=== PATIENT | female | born 1975 | race Caucasian/White ===

== ENCOUNTER 2020-06-08 14:22 | Outpatient (REF) | payer BC, SELFPAY ==
--- NOTE | 2020-06-08 | MM_ITS ---
EXAMINATION: MM SCREENING DIGITAL BREAST TOMOSYNTHESIS, BILATERAL CLINICAL INFORMATION: Screening. Asymptomatic. The lifetime risk of breast cancer based on the Tyrer-Cuzick Model is 10%. COMPARISON: Mammography: 02/10/2019, 01/30/2018, 01/02/2017 TECHNIQUE: Digital breast tomosynthesis is performed in both the craniocaudal and mediolateral oblique views along with computer-aided detection (CAD). Synthesized 2D images are generated from the tomosynthesis. FINDINGS: There are scattered areas of fibroglandular density (ACR BI-RADS breast composition Category b). Breast tissue composition borders on heterogeneously dense. There are no significant masses, abnormal calcifications, or other abnormalities. Parenchymal pattern is similar to prior studies. There is stable asymmetry posterior upper right breast on MLO view similar to prior studies. No developing density. IMPRESSION: No significant changes from prior studies. ASSESSMENT: BI-RADS 2: Benign RECOMMENDATION: Routine annual mammography screening. This patient's information was entered into a reminder system with a target due date for their next mammogram.
== END 2020-06-08 14:23 | disposition home or self-care (01) ==
LOC: HO.MAMMO 14:22
PROVIDERS: PCP Internal Medicine; Visit Provider Internal Medicine
DX: Z20.828 Contact with and (suspected) exposure to other viral communicable diseases (principal)
CPT/HCPCS: 77063; 77067

== ENCOUNTER 2021-06-29 14:17 | Outpatient (REF) | payer OTHER, SELFPAY ==
--- NOTE | ~2021-06-29 | MM_ITS ---
EXAMINATION: MM SCREENING DIGITAL BREAST TOMOSYNTHESIS, BILATERAL CLINICAL INFORMATION: Screening. Asymptomatic. The lifetime risk of breast cancer based on the Tyrer-Cuzick Model is 10.4%. COMPARISON: Mammography: June 08, 2020 and studies dating back to November 16, 2014 TECHNIQUE: Digital breast tomosynthesis is performed in both the craniocaudal and mediolateral oblique views along with computer-aided detection (CAD). Synthesized 2D images are generated from the tomosynthesis. FINDINGS: The breasts are heterogeneously dense, which may obscure small masses (ACR BI-RADS breast composition Category c). There are no significant masses, abnormal calcifications, or other abnormalities. MM/MM tomosynthesis screening BI IMPRESSION: There are no significant changes from prior study. ASSESSMENT: BI-RADS 1: Negative RECOMMENDATION: Routine annual mammography screening. This patient's information was entered into a reminder system with a target due date for their next mammogram.
== END 2021-06-29 14:18 | disposition home or self-care (01) ==
LOC: HO.MAMMO 14:17
PROVIDERS: PCP Internal Medicine; Visit Provider Internal Medicine
DX: Z12.31 Encounter for screening mammogram for malignant neoplasm of breast (principal)
CPT/HCPCS: 77063; 77067

== ENCOUNTER 2021-09-29 06:29 | Outpatient (REF) | payer OTHER, SELFPAY ==
[2021-09-29 06:44] LABS: MANUAL DIFF FLAG NO
[2021-09-29 07:33] LABS: Basophils Percent Auto 0.6 % (0-2); Eosinophils Absolute Auto 0.3 X10*3/uL (0.0-0.4); Hematocrit 41.5 % (37.0-47.0); Hemoglobin 13.6 g/dl (12.0-16.0); Imm Gran Abs Auto 0.01 X10*3/uL (0.00-0.03); Imm Gran Pct Auto 0.2 % (0.0-0.4); Lymphocytes Absolute Auto 1.3 X10*3/uL (1.2-4.9); Lymphocytes Percent Auto 27.5 % (20-40); Mean Corpuscular HGB Conc 32.8 g/dl (31.0-35.0); Mean Corpuscular Hemoglobin 29.4 pg (27.0-33.0); Mean Corpuscular Volume 89.8 fL (80.0-98.0); Mean Platelet Volume 12.2 fL (9.4-12.3); Monocytes Absolute Auto 0.4 X10*3/uL (0.1-1.2); Monocytes Percent Auto 7.9 % (2-11); Neutrophils Absolute Auto 2.8 x10*3/uL (2.0-8.3); Neutrophils Percent Auto 57.8 % (45-73); Platelet Count 134 X10*3/uL (160-400); Red Blood Count 4.62 X10*6/uL (4.20-5.50); Red Cell Distribution Width 13.6 % (11.0-16.0); White Blood Count 4.8 X10*3/uL (4.8-10.8)
[2021-09-29 08:04] LABS: Alanine Aminotransferase 15 U/L (0-31); Albumin Level 4.3 g/dL (3.5-5.0); Alkaline Phosphatase 37 U/L (39-117); Anion Gap 11 (12-20); Aspartate Amino Transferase 18 U/L (5-31); Bilirubin Total 0.9 mg/dL (0.0-1.0); Blood Urea Nitrogen 17 mg/dL (9-16); Calcium 9.7 mg/dL (8.4-10.2); Carbon Dioxide 26 mmol/L (22-29); Chloride 107 mmol/L (96-108); Cholesterol 183 mg/dL; Estimated Glomerular Filt Rate > 60; Glucose Fasting 103 mg/dL (60-99); HDL Cholesterol 72 mg/dL; LDL Cholesterol Calculated 100 mg/dl; Potassium 4.2 mmol/L (3.3-5.1); Sodium 140 mmol/L (135-145); Total Protein 6.9 g/dL (6.5-8.0); Triglycerides 59 mg/dL
[2021-09-29 08:14] LABS: Thyroid Stimulating Hormone 2.55 uIU/mL (0.32-4.0)
== END 2021-09-29 06:30 | disposition home or self-care (01) ==
LOC: HO.LAB 06:29
PROVIDERS: PCP Internal Medicine; Visit Provider Internal Medicine
DX: E03.9 Hypothyroidism, unspecified (principal); D64.9 Anemia, unspecified; F41.1 Generalized anxiety disorder; E78.5 Hyperlipidemia, unspecified
CPT/HCPCS: 36415; 80053; 80061; 84443; 85025

== ENCOUNTER 2021-12-27 05:58 | Outpatient (REF) | payer OTHER, SELFPAY ==
[2021-12-27 06:09] LABS: MANUAL DIFF FLAG NO
[2021-12-27 07:34] LABS: Basophils Percent Auto 0.5 % (0-2); Eosinophils Absolute Auto 0.3 X10*3/uL (0.0-0.4); Eosinophils Percent Auto 4.7 % (0-4); Hematocrit 43.2 % (37.0-47.0); Hemoglobin 13.7 g/dl (12.0-16.0); Imm Gran Abs Auto 0.01 X10*3/uL (0.00-0.03); Imm Gran Pct Auto 0.2 % (0.0-0.4); Lymphocytes Absolute Auto 1.3 X10*3/uL (1.2-4.9); Lymphocytes Percent Auto 23.3 % (20-40); Mean Corpuscular HGB Conc 31.7 g/dl (31.0-35.0); Mean Corpuscular Hemoglobin 29.1 pg (27.0-33.0); Mean Corpuscular Volume 91.7 fL (80.0-98.0); Monocytes Absolute Auto 0.5 X10*3/uL (0.1-1.2); Monocytes Percent Auto 9.5 % (2-11); Neutrophils Absolute Auto 3.5 x10*3/uL (2.0-8.3); Neutrophils Percent Auto 61.8 % (45-73); Platelet Count 134 X10*3/uL (160-400); Red Blood Count 4.71 X10*6/uL (4.20-5.50); Red Cell Distribution Width 13.3 % (11.0-16.0); White Blood Count 5.7 X10*3/uL (4.8-10.8)
[2021-12-27 08:10] LABS: Thyroid Stimulating Hormone 2.81 uIU/mL (0.32-4.0)
== END 2021-12-27 05:59 | disposition home or self-care (01) ==
LOC: HO.LAB 05:58
PROVIDERS: PCP Internal Medicine; Visit Provider Internal Medicine
DX: E03.9 Hypothyroidism, unspecified (principal); D69.6 Thrombocytopenia, unspecified
CPT/HCPCS: 36415; 84443; 85025

== ENCOUNTER 2022-01-23 15:51 | Outpatient (REF) | payer OTHER, SELFPAY ==
--- NOTE | ~2022-01-23 | XR_ITS ---
EXAMINATION: XR HAND, LEFT CLINICAL INFORMATION: Pain. COMPARISON: None TECHNIQUE: PA, lateral, and oblique views of the left hand. FINDINGS: The bones and soft tissues are normal. No fracture. Alignment is anatomic. Joint spaces are maintained. No erosions or soft tissue calcifications. XR/XR hand LT min 3V IMPRESSION: Normal left hand.
== END 2022-01-23 15:52 | disposition home or self-care (01) ==
LOC: HO.XRAY 15:51
PROVIDERS: PCP Internal Medicine; Visit Provider Internal Medicine
DX: M79.642 Pain in left hand (principal)
CPT/HCPCS: 73130

== ENCOUNTER 2022-07-02 14:58 | Outpatient (REF) | payer OTHER, SELFPAY ==
--- NOTE | ~2022-07-02 | MM_ITS ---
EXAMINATION: MM SCREENING DIGITAL BREAST TOMOSYNTHESIS, BILATERAL CLINICAL INFORMATION: Screening. Asymptomatic. COMPARISON: Mammography: 06/29/2021 and prior exams dating back to 11/16/2014 TECHNIQUE: Digital breast tomosynthesis is performed in both the craniocaudal and mediolateral oblique views along with computer-aided detection (CAD). Synthesized 2D images are generated from the tomosynthesis. FINDINGS: The breasts are heterogeneously dense, which may obscure small masses (ACR BI-RADS breast composition Category c). Parenchymal pattern is similar to prior studies. No developing density or architectural abnormality. Breast tissue composition borders on average fibroglandular. There are no significant masses, abnormal calcifications, or other abnormalities. Skin contours are smooth. No significant changes. MM/MM tomosynthesis screening BI IMPRESSION: No mammographic evidence of malignancy. ASSESSMENT: BI-RADS 1: Negative RECOMMENDATION: Routine annual mammography screening. This patient's information was entered into a reminder system with a target due date for their next mammogram.
== END 2022-07-02 14:59 | disposition home or self-care (01) ==
LOC: HO.MAMMO 14:58
PROVIDERS: PCP Internal Medicine; Visit Provider Internal Medicine
DX: Z12.31 Encounter for screening mammogram for malignant neoplasm of breast (principal)
CPT/HCPCS: 77063; 77067

== ENCOUNTER → 2022-12-12 11:42 | Outpatient (BNVA) | payer OTHER, SELFPAY | PROVIDERS: PCP Internal Medicine; Visit Provider Nurse Practitioner Family | DX: Z13.89 Encounter for screening for other disorder (principal) ==

== ENCOUNTER 2023-01-24 10:54 | Day surgery (SDC) | payer OTHER, SELFPAY ==
[2023-01-18 16:48] VITALS: BMI 23.4
--- NOTE | 2023-01-23 08:55 | HO.ANESPROP2 ---
Documented by User: Cat Wilkes NP 01/23/23 08:57 HPI - Anesthesia Eval Consult details Narrative: 47yo F for Colonoscopy Hx Thrombocytopenia PMFSH Active Problems Active Problems: All Active Problems (Updated 11/19/22 @ 12:30 by Palak Palacios MD) Screen for colon cancer (Acute) Pharyngitis (Acute) Left hand pain (Acute) Physical exam (Acute) Thrombocytopenia (Acute) ROSARIO (generalized anxiety disorder) (Acute) Hypothyroid (Acute) Past Medical History Medical History ROSARIO (generalized anxiety disorder) Hypothyroid Left hand pain Physical exam Thrombocytopenia Family History Family History Mother Hypertension IBS (irritable bowel syndrome) Father Diabetes mellitus CAD (coronary artery disease) Pure hypercholesterolemia Hypertension CHF (congestive heart failure) Hypothyroidism Fred's syndrome Maternal Grandmother Acute leukemia Maternal Grandfather Cancer Paternal Grandmother Hypertension Stroke Heart attack Paternal Grandfather Brain cancer Surgical History Surgical History History of endometrial ablation History of tonsillectomy Previous section Social History Social History Housing: House Alcohol intake: current Alcohol intake frequency: a few times a month Alcohol type: beer and hard liquor Patient Tobacco Use Status: Former Tobacco user Tobacco use type: Cigarette e-Cigarette/Vaping Use: Never Used Second Hand Smoke Exposure: No Use of substances other than those prescribed or required for medical reasons: No Are you DNR?: No Advance Directives: No Advance Directives Information Provided: Yes service: No Current occupational status: employed Current occupational exposures/hazards: No Cognitive needs: No Hearing needs: No Vision needs: No Meds Allergies Allergy/AdvReac Type Severity Reaction Status Date / Time acetaminophen [From Percocet] Allergy Severe Vomiting Verified 01/24/23 11:33 codeine [CODEINE] Allergy Severe Vomiting Verified 01/24/23 11:33 cortisone Allergy Severe Vomiting Verified 01/24/23 11:33 erythromycin base Allergy Severe Vomiting Verified 01/24/23 11:33 [ERYTHROMYCIN BASE] oxycodone [From Percocet] Allergy Severe Vomiting Verified 01/24/23 11:33 Codeine Sulfate Allergy Severe Vomiting Uncoded 01/24/23 11:33 Exam Exam Date and Time: January 23, 2023 0855 Height,Weight and Vital Signs: Height 5 ft 8.5 in Weight 70.987 kg Assessment and Plan Assessment Anesthesia Assessment: Chart Reviewed Documented by User: Nanci Puentes MD 01/24/23 12:36 PMFSH Past Medical History Medical History ROSARIO (generalized anxiety disorder) Hypothyroid Left hand pain Physical exam Thrombocytopenia Family History Family History Mother Hypertension IBS (irritable bowel syndrome) Father Diabetes mellitus CAD (coronary artery disease) Pure hypercholesterolemia Hypertension CHF (congestive heart failure) Hypothyroidism Fred's syndrome Maternal Grandmother Acute leukemia Maternal Grandfather Cancer Paternal Grandmother Hypertension Stroke Heart attack Paternal Grandfather Brain cancer Surgical History Surgical History History of endometrial ablation History of tonsillectomy Previous section History of Problems with Anesthesia: No Social History Social History Housing: House Alcohol intake: current Alcohol intake frequency: a few times a month Alcohol type: beer and hard liquor Patient Tobacco Use Status: Former Tobacco user Tobacco use type: Cigarette e-Cigarette/Vaping Use: Never Used Second Hand Smoke Exposure: No Use of substances other than those prescribed or required for medical reasons: No Are you DNR?: No Advance Directives: No Advance Directives Information Provided: Yes service: No Current occupational status: employed Current occupational exposures/hazards: No Cognitive needs: No Hearing needs: No Vision needs: No Meds Allergies Allergy/AdvReac Type Severity Reaction Status Date / Time acetaminophen [From Percocet] Allergy Severe Vomiting Verified 01/24/23 11:33 codeine [CODEINE] Allergy Severe Vomiting Verified 01/24/23 11:33 cortisone Allergy Severe Vomiting Verified 01/24/23 11:33 erythromycin base Allergy Severe Vomiting Verified 01/24/23 11:33 [ERYTHROMYCIN BASE] oxycodone [From Percocet] Allergy Severe Vomiting Verified 01/24/23 11:33 Codeine Sulfate Allergy Severe Vomiting Uncoded 01/24/23 11:33 Exam Airway Mallampati Class: II TM Dist: >3cm Neck ROM: Full Loose/Missing/Broken Teeth: No Heart: RRR Lungs: CTA Assessment and Plan Assessment Anesthesia Assessment: Anesthesia Plan Discussed Final Anesthetic Review History of Problems with Anesthesia: No NPO: Yes ASA Class: II Final Preanesthetic Review: Meds/Allgs Chart Reviewed, Consent Obtained/Reviewed and Anes Risks/Benef Reviewed Patient Risk: Low Procedure Risk: Low Anesthetic Plan Anesthetic Plan: MAC: Disposition: Standard PACU
[2023-01-24 11:21] VITALS: BMI 23.2
[2023-01-24 11:25] LABS: Hematocrit 43.1 % (37.0-47.0); Mean Corpuscular HGB Conc 32.5 g/dl (31.0-35.0); Mean Corpuscular Hemoglobin 29.6 pg (27.0-33.0); Mean Corpuscular Volume 91.1 fL (80.0-98.0); Mean Platelet Volume 11.7 fL (9.4-12.3); Platelet Count 115 X10*3/uL (160-400); Red Blood Count 4.73 X10*6/uL (4.20-5.50); Red Cell Distribution Width 13.4 % (11.0-16.0); White Blood Count 6.7 X10*3/uL (4.8-10.8)
[2023-01-24 11:26] VITALS: BP 125/64; PULSE 69; RESP 16; TEMP 37.6; O2SAT 98
[2023-01-24] MEDS: Lactated Ringers 1,000 ML 100 ML IVCONT (11:32)
--- NOTE | 2023-01-24 12:00 | PC.NURSE ---
PREOP PLATELET RESULT 115. DR. MOON AND DR. GONZALEZ MADE AWARE. OKAY TO PROCEED PER DR. GONZALEZ.
--- NOTE | 2023-01-24 12:06 | MHC.SHP ---
Pre-Procedural Eval Section A Date of Service: 01/24/23 Section B Chief Complaint: screening Relevant Family History (Specify if Yes): No Relevant Social History: Alcohol Use (occasional) Present Medications: see Short Stay Collaborative assessment Medical History: Significant History (ROSARIO (generalized anxiety disorder) Hypothyroid Left hand pain Physical exam Thrombocytopenia) History of Previous Operations: Relevant previous surgery/procedure and date(s) (History of endometrial ablation History of tonsillectomy Previous section) Allergies: Allergies Allergy/AdvReac Type Severity Reaction Status Date / Time acetaminophen [From Percocet] Allergy Severe Vomiting Verified 01/24/23 11:33 codeine [CODEINE] Allergy Severe Vomiting Verified 01/24/23 11:33 cortisone Allergy Severe Vomiting Verified 01/24/23 11:33 erythromycin base Allergy Severe Vomiting Verified 01/24/23 11:33 [ERYTHROMYCIN BASE] oxycodone [From Percocet] Allergy Severe Vomiting Verified 01/24/23 11:33 Codeine Sulfate Allergy Severe Vomiting Uncoded 01/24/23 11:33 Review of Systems Sugical H&P ROS: Negative: Constitution, Cardiovascular, Respiratory, Neurological, Psychiatric, Hem-Onc, Allergic/Immunologic, Gastrointestinal, Genitourinary, Musculoskeletal, Integumentary, Endocrine and Eyes/Ears/Nose/Throat Exam Surgical H&P Exam: Normal: HEENT, Normal: Heart, Normal: Lungs, Normal: Extremities, Normal: Abdomen, Normal: Skin and Normal: Neurological Plan Diagnosis/Plan: Unchanged I have reviewed the history and physical and performed a pertinent physical examination on my patient. No changes have occurred unless specified. Time Spent With Patient Time: Total time managing care of this patient today ____ minutes.
[2023-01-24 13:00] LABS: HCG Quantitative < 2 mIU/mL
--- NOTE | 2023-01-24 13:43 | W.PM.OPN ---
Operative Note Operative Note Date of Service: 01/24/23 Narrative: Operative Information Procedure Description: Colonoscopy Indication: colon screening Anesthesia: MAC COLONOSCOPY Instrument: Olympus variable stiffness pediatric scope 190L Colonoscopy Monitoring: Vital signs and clinical assessment, continuous EKG monitoring, Pulse oximetry, Carbon Dioxide monitoring and blood pressure monitoring were done throughout the procedure. Colon withdrawal time was 17 minutes. Procedure: The patient was placed in the left lateral decubitis position and pre-procedure medications were administered. After a digital rectal examination of the ano-rectum, the video colonoscope was inserted into the rectum and advanced through the colon to the cecum/TI. The colonoscope was slowly withdrawn in a retrograde panoramic fashion and the colon mucosa was carefully examined including a retroflexed view of the rectum. Findings and interventions are described below. Procedure Difficulty: moderate due to redundant colon and looping Findings: Terminal Ileum-normal Cecum: flat polyp noted with mucosal cap, lifted with eleview and then removed with hot snare, with edges ablated with tip of snare. The polyp measured about 10-12 mm. The defect was partially closed with a clip. Ascending Colon: normal Transverse Colon -normal Descending Colon:normal Sigmoid Colon: few diverticula noted Rectum: Retroflexion with small internal hemorrhoids, grade I Anorectum - normal Colon preparation: [place] Bowel Preparation Scale Right colon; 3 Transverse colon: 3 Left colon; 3 (0 = Unprepared colon segment with mucosa not seen due to solid stool that cannot be cleared. 1 = Portion of mucosa of the colon segment seen, but other areas of the colon segment not well seen due to staining, residual stool and/or opaque liquid. 2 = Minor amount of residual staining, small fragments of stool and/or opaque liquid, but mucosa of colon segment seen well. 3 = Entire mucosa of colon segment seen well with no residual staining, small fragments of stool or opaque liquid) Impression and Post Procedure Diagnosis: polyp internal hemorrhoids diverticular disease redundant colon Plan: High fiber diet leaflet Avoid straining at stool, epsom salts and sitz bath, anusol supps or cream Repeat Colonoscopy in 3-5 years or earlier if clinically indicated next time can consider using an adult scope Above findings were reviewed with the patient and relevant handouts were provided if indicated.
[2023-01-24 13:45] VITALS: BP 110/60; PULSE 74; RESP 16; TEMP 36.6; O2SAT 100
[2023-01-24 14:00] VITALS: BP 110/50; PULSE 82; RESP 16; O2SAT 100
[2023-01-24 14:15] VITALS: BP 121/63; PULSE 72; RESP 18; TEMP 37.1; O2SAT 100
== END 2023-01-24 14:20 | disposition home or self-care (01) ==
PROVIDERS: Anesthesiology; Nurse Practitioner; PCP Internal Medicine; Visit Provider Internal Medicine Gastroenterology
PROC: 0DJD8ZZ Inspection of Lower Intestinal Tract, Via Natural or Artificial Opening Endoscopic (ICD-10-PCS; CPT 45378; principal; 2023-01-24 12:30)
DX: Z12.11 Encounter for screening for malignant neoplasm of colon (principal); D12.0 Benign neoplasm of cecum; K57.30 Diverticulosis of large intestine without perforation or abscess without bleeding; K64.0 First degree hemorrhoids; Q43.8 Other specified congenital malformations of intestine; E03.9 Hypothyroidism, unspecified; D69.6 Thrombocytopenia, unspecified; F41.1 Generalized anxiety disorder; Z88.0 Allergy status to penicillin; Z88.1 Allergy status to other antibiotic agents; Z88.8 Allergy status to other drugs, medicaments and biological substances; Z87.891 Personal history of nicotine dependence
CPT/HCPCS: 45385; 45381; 36415; 84702; 85027; 88305

== ENCOUNTER 2023-02-22 10:28 | Outpatient (AMB) | payer OTHER, SELFPAY ==
--- NOTE | 2023-02-22 10:45 | A.OFFVIS_ITS ---
Intake Vital Signs 02/22/23 10:46 Height 5 ft 8 in Weight 156 lb 1.396 oz BMI 23.7 BP 154/71 H Blood Pressure Location Lt brachial Position Sitting Pulse 63 Intake Visit Reasons: s/P Dr. Díaz Intake Note: Amy presents in office as a est.patient for a post-op for colo pt got it done 01.24.23 PT CC: pt reports having no concerns pt denies any other GI Issues Chairman Ceo Required: No Accompanied by: Self / Same As Patient Allergies acetaminophen [From Percocet] Allergy (Severe, Verified 02/22/23 10:45) Vomiting codeine [CODEINE] Allergy (Severe, Verified 02/22/23 10:45) Vomiting cortisone Allergy (Severe, Verified 02/22/23 10:45) Vomiting erythromycin base [ERYTHROMYCIN BASE] Allergy (Severe, Verified 02/22/23 10:45) Vomiting oxycodone [From Percocet] Allergy (Severe, Verified 02/22/23 10:45) Vomiting Codeine Sulfate Allergy (Severe, Uncoded 02/22/23 10:45) Vomiting HPI s/P Dr. Díaz HPI Details LAST VISIT: Patient denies any GI, cardiac or respiratory symptoms.? Denies any issues with anesthesia in the past.? Denies any history of sleep apnea.? No history infectious diseases in the past or present.? Not on any anticoagulation therapy.? No family or personal history of colon cancer or polyps.? Patient's brother was diagnosed with Crohn's disease.? Patient denies melena, hematochezia, unintentional weight loss or ribbon like stools.? Discussed at length the pre-procedure,? prep, diet & medications as well as what to expect prior, during and after the procedure.?? Stressed the importance of good bowel prep. ?Recommended the use of Vaseline or Calmoseptine OTC & baby wipes with bowel movements to promote comfort.? ?Patient verbalizes understanding and agrees to plan of care.? She was given the opportunity to ask questions and all questions answered.? We will see her after the procedure.? COLONOSCOPY: Findings: Terminal Ileum-normal Cecum: flat polyp noted with mucosal cap, lifted with eleview and then removed with hot snare, with edges ablated with tip of snare. The polyp measured about 10-12 mm. The defect was partially closed with a clip. Ascending Colon: normal Transverse Colon -normal Descending Colon:normal Sigmoid Colon: few diverticula noted Rectum: Retroflexion with small internal hemorrhoids, grade I Anorectum - normal Colon preparation: [place] Bowel Preparation Scale Right colon; 3 Transverse colon: 3 Left colon; 3 (0 = Unprepared colon segment with mucosa not seen due to solid stool that cannot be cleared. 1 = Portion of mucosa of the colon segment seen, but other areas of the colon segment not well seen due to staining, residual stool and/or opaque liquid. 2 = Minor amount of residual staining, small fragments of stool and/or opaque liquid, but mucosa of colon segment seen well. 3 = Entire mucosa of colon segment seen well with no residual staining, small fragments of stool or opaque liquid) Impression and Post Procedure Diagnosis: polyp internal hemorrhoids diverticular disease redundant colon Plan: High fiber diet leaflet Avoid straining at stool, epsom salts and sitz bath, anusol supps or cream Repeat Colonoscopy in 3-5 years or earlier if clinically indicated next time can consider using an adult scope PATHOLOGY RESULTS Diagnosis Cecum, polypectomy:? Fragments of sessile serrated lesion/polyp; negative for cytologic dysplasia. TODAY'S VISIT Patient is here today for follow-up and to discuss colonoscopy results. Patient denies any ill effects from the prep, anesthesia or procedure itself. One sessile serrated polyp found without dysplasia or carcinoma. Colonoscopy was recommended in 3 years. Patient had good prep. Redundant colon seen and we will need to use adult scope next colonoscopy. Diverticular disease of sigmoid colon found as well. Patient denies any melena, hematochezia, unintentional weight loss or ribbon like stools. Patient denies any dyspepsia, dysphagia or odynophagia. Patient states that she has been feeling well and denies any GI concerning symptoms. [facility] Medical History (Updated 03/13/23 @ 20:25 by Erika Veliz, LOT TECHNICIAN-) Diverticulosis ROSARIO (generalized anxiety disorder) Hypothyroid Left hand pain Physical exam Sessile serrated polyp of colon Thrombocytopenia Surgical History History of endometrial ablation History of tonsillectomy Hx of colonoscopy Previous section Family History Mother Hypertension IBS (irritable bowel syndrome) Father Diabetes mellitus CAD (coronary artery disease) Pure hypercholesterolemia Hypertension CHF (congestive heart failure) Hypothyroidism Fred's syndrome Maternal Grandmother Acute leukemia Maternal Grandfather Cancer Paternal Grandmother Hypertension Stroke Heart attack Paternal Grandfather Brain cancer Social History Housing: House Alcohol intake: current Alcohol intake frequency: a few times a month Alcohol type: beer and hard liquor Patient Tobacco Use Status: Former Tobacco user Tobacco use type: Cigarette e-Cigarette/Vaping Use: Never Used Second Hand Smoke Exposure: No service: No Current occupational status: employed Current occupational exposures/hazards: No Cognitive needs: No Hearing needs: No Vision needs: No Review of Systems Const Denies weight gain and Denies weight loss ENT Reports no additional complaints, Denies dysphagia and Denies odynophagia Card Reports no additional complaints Resp Reports no additional complaints GI Denies abdominal pain, Denies belching, Denies melena, Denies bloating, Denies change in bowel habits, Denies dysphagia, Denies excessive flatus, Denies dyspepsia, Denies heartburn, Denies diarrhea, Denies loose stools, Denies nausea, Denies odynophagia and Denies vomiting Musc Reports no additional complaints Neuro Reports no additional complaints Psych Reports no additional complaints Endo Reports no additional complaints Physical Exam Vital Signs: Last Vital Signs Pulse 63 02/22/23 10:46 BP 154/71 H 02/22/23 10:46 BMI result Body Mass Index 23.7 Const General: healthy appearing, no acute distress and well developed Nutritional Appearance: well nourished Orientation/consciousness: patient oriented x3 HEENT Head: Yes normal to inspection, Yes normocephalic and Yes atraumatic Face and sinus: Yes normal facial exam Mouth: Normal oral and palatal mucosa present Throat: Yes posterior oropharynx normal, Yes tonsils normal and Yes uvula midline Eyes General: appearance normal, both eyes and all related structures Neck Neck: Yes normal visual inspection, Yes full ROM and Yes trachea midline Thyroid: Thyroid normal Resp Effort & Inspection: normal respiratory effort, able to speak in complete sentences, no tracheal deviation and symmetric chest movement Auscultation: clear to auscultation bilaterally Cardio Rate: regular rate Heart sounds: S1 normal heart sound present and S2 normal heart sound present GI Inspection: Yes normal to inspection and No distended Palpation (GI): Soft to palpation, not firm, nontender and No hepatosplenomegaly present Auscultation: normal bowel sounds General: Yes no CVA tenderness Back/Spine/Pelvis Back: no CVA tenderness Skin General skin exam: elasticity normal, turgor normal and dry skin Neuro General: patient oriented x3 Psych Appearance: grossly normal Mental Status: mental status grossly normal Speech and movement: Normal speech and movement present Affect: normal affect Assessment & Plan Assessment & Plan (1) Diverticulosis: Code(s): K57.90 - Diverticulosis of intestine, part unspecified, without perforation or abscess without bleeding Plan: Scattered diverticulosis of sigmoid colon found. Patient will need to increase fiber in her diet. Patient was also encouraged to increase fluid intake and activity. List of food high in fiber given to patient. (2) Sessile serrated polyp of colon: Code(s): D12.6 - Benign neoplasm of colon, unspecified Plan: Sessile serrated follow up found patient will return for colorectal screening in 3 years, sooner if clinically necessary. Patient is agreeable to this plan and verbalizes understanding of instructions. She was given the opportunity to ask questions and all questions answered. Patient will follow-up with our office on as needed basis. Thank you for allowing me to participate in her care Coding Level of Care Code Est Pt Level 3 (88154) Diagnoses Diverticulosis K57.90 Sessile serrated polyp of colon D12.6 Time Spent (min) 30 Comment 20 minutes spent with patient and additional 10 minutes spent reviewing her records
[2023-02-22 10:46] VITALS: BP 154/71; PULSE 63; BMI 23.7
== END 2023-02-22 12:05 | disposition home or self-care (01) ==
PROVIDERS: PCP Internal Medicine; Visit Provider Nurse Practitioner Family
DX: K57.90 Diverticulosis of intestine, part unspecified, without perforation or abscess without bleeding (principal); D12.6 Benign neoplasm of colon, unspecified
CPT/HCPCS: 99213

== ENCOUNTER → 2023-02-22 10:28 | Outpatient (BNVA) | payer OTHER, SELFPAY | PROVIDERS: PCP Internal Medicine; Visit Provider Nurse Practitioner Family ==

== ENCOUNTER 2023-04-23 14:44 | Outpatient (AMB) | payer OTHER, SELFPAY ==
[2023-04-23 14:45] VITALS: BP 152/80; BMI 23.9
--- NOTE | 2023-04-23 14:45 | MHC.PC.OV ---
Vital Signs 04/23/23 14:45 04/23/23 15:20 Height 5 ft 8 in Weight 157 lb BMI 23.9 BP 152/80 H 150/80 H Blood Pressure Location Lt brachial Lt brachial Position Sitting Sitting Intake Visit Reasons: Discuss bp Intake Note: Patient here for a follow up BP Core Paster Required: No Accompanied by: Self / Same As Patient Allergies acetaminophen [From Percocet] Allergy (Severe, Verified 04/23/23 15:05) Vomiting codeine [CODEINE] Allergy (Severe, Verified 04/23/23 15:05) Vomiting erythromycin base [ERYTHROMYCIN BASE] Allergy (Severe, Verified 04/23/23 15:05) Vomiting oxycodone [From Percocet] Allergy (Severe, Verified 04/23/23 15:05) Vomiting Codeine Sulfate Allergy (Severe, Uncoded 04/23/23 15:05) Vomiting Medication List - Last Reconciled 04/23/23 by Palak Palacios MD clobetasol 0.05% 1 appl topical BID PRN 2 weeks clonazepam 0.5 mg PO BID 90 days levothyroxine (Synthroid) 50 mcg PO DAILY 90 days Tobacco use date assessed: 10/09/22 Dental Screening Dental Screen Date: 04/23/23 Did you have a dental visit in the last 12 months?: Yes Did you have a dental problem in the last 6 months where you did not have access to dental care?: No Was dental information given to patient?: Patient has dentist HPI HPI Comments History of Present Illness Details This is a 47-year-old female with hypothyroidism and anxiety that comes today complaining of elevated blood pressure associated with some palpitations. No sweating or any other symptom. Last TSH was normal. Anxiety stable with benzodiazepines as needed. I will start her on losartan. Order ultrasound of kidneys to rule out renal artery stenosis. Also rule out secondary causes of hypertension such as aldosteronism or pheochromocytoma. [facility] Medical History (Updated 04/23/23 @ 15:12 by Palak Palacios MD) Diverticulosis ROSARIO (generalized anxiety disorder) Hypothyroid Left hand pain Physical exam Sessile serrated polyp of colon Thrombocytopenia Surgical History History of endometrial ablation History of tonsillectomy Hx of colonoscopy Previous section Family History Mother Hypertension IBS (irritable bowel syndrome) Father Diabetes mellitus CAD (coronary artery disease) Pure hypercholesterolemia Hypertension CHF (congestive heart failure) Hypothyroidism Fred's syndrome Maternal Grandmother Acute leukemia Maternal Grandfather Cancer Paternal Grandmother Hypertension Stroke Heart attack Paternal Grandfather Brain cancer Social History Housing: House Alcohol intake: current Alcohol intake frequency: a few times a month Alcohol type: beer and hard liquor Patient Tobacco Use Status: Former Tobacco user Tobacco use type: Cigarette e-Cigarette/Vaping Use: Never Used Second Hand Smoke Exposure: No service: No Current occupational status: employed Current occupational exposures/hazards: No Cognitive needs: No Hearing needs: No Vision needs: No Questionnaire Thrive Questionnaire Date Thrive assessed: 10/09/22 ROSARIO-7 AMB Questionnaire ROSARIO-7 Date ROSARIO - 7 assessed: 10/09/22 Source: Developed by Drs. Norm Rivas, Lynne Frey, Terrance Mason and colleagues, with an educational raleigh from [employer]. Review of Systems Const All systems reviewed & are unremarkable except as noted in HPI and below Eyes Reports no additional complaints, Denies change in vision and Denies other visual disturbances Card Denies chest pain at rest, Denies chest pain with activity, Denies edema, Denies irregular heart rhythm, Denies claudication, Denies dyspnea, Denies dyspnea on exertion, Denies orthopnea, Denies paroxysmal nocturnal dyspnea and Denies slow heart rate Resp Denies cough, Denies dyspnea and Denies dyspnea on exertion GI Denies abdominal pain, Denies change in bowel habits, Denies excessive flatus, Denies nausea and Denies vomiting Denies urinary incontinence, Denies urinary hesitancy and Denies urinary urgency Musc Denies abnormal gait, Denies atrophy, Denies deformity and Denies limited range of motion Skin/Breast Denies bleeding lesions, Denies changing lesions and Denies rash Neuro Denies abnormal gait and Denies lack of coordination Physical exam (Primary Care) Vital Signs: Last Vital Signs BP 152/80 H 04/23/23 14:45 BMI result Body Mass Index 23.9 Tobacco/Smoking Status: Tobacco use Status Tobacco use date assessed 10/09/22 04/23/23 14:51 Patient Tobacco Use Status Former Tobacco user 04/23/23 14:51 Tobacco use type Cigarette 04/23/23 14:51 e-Cigarette/Vaping Use Never Used 04/23/23 14:51 Thrive Assessment: Date of Thrive Assessment Date Thrive assessed 10/09/22 04/23/23 14:51 Eyes General: appearance normal, both eyes and all related structures Eyelids: Yes eyelids normal Conjunctivae: conjunctivae normal Neck Neck: Yes normal visual inspection and Yes supple Resp Effort & Inspection: normal respiratory effort Auscultation: clear to auscultation bilaterally Cardio Jugular venous distension: no JVD Rate: regular rate Rhythm: regular rhythm Heart sounds: S1 normal heart sound present and S2 normal heart sound present Extrem General: Yes full ROM Assessment and Plan Assessment & Plan (1) Hypothyroid: Code(s): E03.9 - Hypothyroidism, unspecified Plan: Continue levothyroxine. (2) ROSARIO (generalized anxiety disorder): Code(s): F41.1 - Generalized anxiety disorder Plan: Continue benzodiazepines as needed. (3) Uncontrolled hypertension: Code(s): I10 - Essential (primary) hypertension Plan: Start losartan. Blood pressure goal is equal or less than 130/80. Advised to measure blood pressure at home 3 times a week. Orders: Orders US renal BI Today I10 - Essential (primary) hypertension Aldosterone Today I10 - Essential (primary) hypertension Aldost/Renin Today I10 - Essential (primary) hypertension Catecholamines, Frac., Plasma Today I10 - Essential (primary) hypertension Metanephrines, Plasma Today I10 - Essential (primary) hypertension Renin Today I10 - Essential (primary) hypertension Metanephrines, Random Urine Today I10 - Essential (primary) hypertension US renal doppler Today I10 - Essential (primary) hypertension Medications: New losartan 25 mg PO DAILY 90 tabs 1RF 90 days I10 - Essential (primary) hypertension Coding Level of Care Code Est Pt Level 3 (42868) Diagnoses Hypothyroid E03.9 ROSARIO (generalized anxiety disorder) F41.1 Uncontrolled hypertension I10 Time Spent (min) 19
[2023-04-23 15:20] VITALS: BP 150/80
== END 2023-04-23 15:15 | disposition home or self-care (01) ==
PROVIDERS: PCP Internal Medicine; Visit Provider Internal Medicine
DX: E03.9 Hypothyroidism, unspecified (principal); F41.1 Generalized anxiety disorder; I10 Essential (primary) hypertension
CPT/HCPCS: 99213

== ENCOUNTER 2023-04-23 15:24 | Outpatient (REF) | payer OTHER, SELFPAY ==
[2023-04-27 16:09] LABS: Metanephrine, Free 31 pg/mL (<=57); Normetanephrines, Free 81 pg/mL (<=148); Total Metanephrine, Free 112 pg/mL (<=205)
[2023-04-30 14:47] LABS: Renin 1.47 ng/mL/h (0.25-5.82)
[2023-05-01 14:03] LABS: Creatinine Random Urine 27 mg/dL (20-275); Metanephrine, Free Rand Ur 80 mcg/g cr (33-192); Normetanephrine, Free Rand Ur 194 mcg/g cr (85-514); Total Metanephrine, Free RU 274 mcg/g cr (155-608)
[2023-05-06 08:20] LABS: Plasma Renin Activity 1.54
[2023-05-06 08:22] LABS: Aldosterone/Renin Ratio 1.9
[2023-05-08 17:39] LABS: Catecholamine Frac, Total 364 pg/mL
== END 2023-04-23 15:25 | disposition home or self-care (01) ==
LOC: HO.LAB 15:24
PROVIDERS: PCP Internal Medicine; Visit Provider Internal Medicine
DX: I10 Essential (primary) hypertension (principal)
CPT/HCPCS: 36415; 82088; 82384; 83835; 84244

== ENCOUNTER 2023-05-22 09:19 | Outpatient (REF) | payer OTHER, SELFPAY ==
--- NOTE | ~2023-05-22 | US_ITS ---
EXAMINATION: ULTRASOUND RENAL WITH DOPPLER CLINICAL INFORMATION: Hypertension. Rule out renal artery stenosis. COMPARISON: None. TECHNIQUE: Real-time grayscale, color Doppler, and duplex Doppler evaluation of the kidneys and renal vasculature was performed. FINDINGS: RENAL MEASUREMENTS: Right: 11.4 x 3.4 x 5.4 cm (Sag x AP x TV) Left: 11.5 x 4.4 x 5.7 cm (Sag x AP x TV) Parenchymal thickness and echogenicity are normal. There is a 1.1 cm simple cyst in the lower pole of the left kidney. No follow-up imaging is recommended. There are nonobstructing stones in the lower pole of the left kidney measuring 4 mm and 2 mm in size. No hydronephrosis. DOPPLER INTERROGATION: AORTA: Mid aorta: 96 cm/sec RIGHT MAIN RENAL ARTERY: Proximal: 151 cm/sec Mid: 191 cm/sec Distal: 95 cm/sec LEFT MAIN RENAL ARTERY: Proximal: 96 cm/sec Mid: 144 cm/sec Distal: 103 cm/sec RENAL-AORTIC RATIO (RAR): Right: 2.0 Left: 1.5 SEGMENTAL RESISTIVE INDICES: Right: 0.65-0.69 Left: 0.62-0.65 RENAL VEINS: Right: Patent with normal waveform. Left: Patent with normal waveform. US/US renal doppler IMPRESSION: Elevated velocity in the mid right renal artery raises the possibility of hemodynamically significant stenosis. This location would favor fibromuscular dysplasia over atherosclerotic disease. Recommend further evaluation with CTA abdomen and pelvis without and with contrast. Nonobstructing renal calculi in the lower pole of the left kidney.
--- NOTE | ~2023-05-22 | US_ITS ---
EXAMINATION: ULTRASOUND RENAL WITH DOPPLER CLINICAL INFORMATION: Hypertension. Rule out renal artery stenosis. COMPARISON: None. TECHNIQUE: Real-time grayscale, color Doppler, and duplex Doppler evaluation of the kidneys and renal vasculature was performed. FINDINGS: RENAL MEASUREMENTS: Right: 11.4 x 3.4 x 5.4 cm (Sag x AP x TV) Left: 11.5 x 4.4 x 5.7 cm (Sag x AP x TV) Parenchymal thickness and echogenicity are normal. There is a 1.1 cm simple cyst in the lower pole of the left kidney. No follow-up imaging is recommended. There are nonobstructing stones in the lower pole of the left kidney measuring 4 mm and 2 mm in size. No hydronephrosis. DOPPLER INTERROGATION: AORTA: Mid aorta: 96 cm/sec RIGHT MAIN RENAL ARTERY: Proximal: 151 cm/sec Mid: 191 cm/sec Distal: 95 cm/sec LEFT MAIN RENAL ARTERY: Proximal: 96 cm/sec Mid: 144 cm/sec Distal: 103 cm/sec RENAL-AORTIC RATIO (RAR): Right: 2.0 Left: 1.5 SEGMENTAL RESISTIVE INDICES: Right: 0.65-0.69 Left: 0.62-0.65 RENAL VEINS: Right: Patent with normal waveform. Left: Patent with normal waveform. US/US renal BI IMPRESSION: Elevated velocity in the mid right renal artery raises the possibility of hemodynamically significant stenosis. This location would favor fibromuscular dysplasia over atherosclerotic disease. Recommend further evaluation with CTA abdomen and pelvis without and with contrast. Nonobstructing renal calculi in the lower pole of the left kidney.
== END 2023-05-22 09:20 | disposition home or self-care (01) ==
LOC: HO.US 09:19
PROVIDERS: PCP Internal Medicine; Visit Provider Internal Medicine
DX: I10 Essential (primary) hypertension (principal)
CPT/HCPCS: 76775; 93975

== ENCOUNTER 2023-06-26 08:15 | Outpatient (REF) | payer OTHER, SELFPAY ==
--- NOTE | ~2023-06-26 | CT_ITS ---
EXAMINATION: CT ANGIOGRAM ABDOMEN AND PELVIS CLINICAL INFORMATION: Renal atherosclerotic disease. COMPARISON: Renal ultrasound doppler 05/22/2023: Elevated velocity in the mid right renal artery raises the possibility of hemodynamically significant stenosis. This location would favor fibromuscular dysplasia over atherosclerotic disease. Recommend further evaluation with CTA abdomen and pelvis without and with contrast. TECHNIQUE: Multiple axial images were obtained through the abdomen and pelvis following the administration of 85 mL of Omnipaque 350 intravenous contrast. Images were reviewed on a dedicated 3-D workstation. This CT examination was performed using dose optimization techniques as appropriate, variously including the following: *Automated exposure control *Adjustment of mA and/or kV according to patient size (this includes techniques or standardized protocols for targeted exams where dose is matched to indication/reason for exam; i.e. extremities or head) *Use of iterative reconstruction technique DLP: 266 mGy-cm. VASCULAR FINDINGS: The abdominal aorta appears unremarkable as do the iliofemoral vessels. No aneurysms, dissections or stenoses are seen. The celiac SMA and JOSE MANUEL are all widely patent. There are single renal arteries present bilaterally which are widely patent without evidence of stenosis. NONVASCULAR FINDINGS: LUNG BASES: The visualized lung bases are unremarkable. LIVER, GALLBLADDER, AND BILIARY TREE: The liver measures 17.6 cm in cephalocaudad dimension and is normal in shape and attenuation. No focal hepatic lesion or biliary ductal dilatation is present. The gallbladder is unremarkable with no evidence of radiopaque gallstones, gallbladder wall thickening, or obvious pericholecystic inflammatory changes. PANCREAS: Unremarkable. SPLEEN: Unremarkable. ADRENAL GLANDS: Unremarkable. KIDNEYS AND URETERS: The kidneys are normal in size, shape, and attenuation. No hydronephrosis, hydroureter, or calculi seen. No perinephric stranding. BLADDER: Unremarkable. GASTROINTESTINAL TRACT: The small and large bowel are unremarkable. No evidence of appendicitis. ABDOMINAL WALL: No significant hernia is appreciated. LYMPH NODES: No retroperitoneal lymphadenopathy. PELVIC VISCERA: An anteverted uterus is present with some lobularity indicative of probable uterine fibroids. OSSEOUS STRUCTURES: Unremarkable. CT/CT angio abdomen pelvis IMPRESSION: 1. No evidence of renal artery stenosis. 2. Incidental note made of probable uterine fibroids. Fleischner guidelines were followed.
[2023-06-26] MEDS: iohexoL 350 MG/ML 100 ML INFUS..BTL IV (08:41)
== END 2023-06-26 08:16 | disposition home or self-care (01) ==
LOC: HO.CT 08:15
PROVIDERS: PCP Internal Medicine; Visit Provider Internal Medicine
DX: I70.1 Atherosclerosis of renal artery (principal); I77.3 Arterial fibromuscular dysplasia
CPT/HCPCS: 74174; Q9967

== ENCOUNTER → 2023-07-08 14:00 | Outpatient (BNV) | payer OTHER, SELFPAY | PROVIDERS: PCP Internal Medicine; Visit Provider Radiology Diagnostic Radiology | DX: Z12.31 Encounter for screening mammogram for malignant neoplasm of breast (principal) | CPT/HCPCS: 77063; 77067 ==

== ENCOUNTER 2023-07-08 14:01 | Outpatient (REF) | payer OTHER, SELFPAY | END 2023-07-08 14:02 | disposition home or self-care (01) | LOC: HO.MAMMO 14:01 | PROVIDERS: PCP Internal Medicine; Visit Provider Internal Medicine | DX: Z12.31 Encounter for screening mammogram for malignant neoplasm of breast (principal) | CPT/HCPCS: 77063; 77067 ==

== ENCOUNTER 2023-10-03 06:14 | Outpatient (REF) | payer OTHER, SELFPAY ==
[2023-10-03 07:45] LABS: Basophils Percent Auto 0.6 % (0-2); Eosinophils Absolute Auto 0.2 X10*3/uL (0.0-0.4); Eosinophils Percent Auto 3.7 % (0-4); Hematocrit 42.7 % (37.0-47.0); Imm Gran Abs Auto 0.01 X10*3/uL (0.00-0.03); Imm Gran Pct Auto 0.2 % (0.0-0.4); Lymphocytes Absolute Auto 1.1 X10*3/uL (1.2-4.9); Lymphocytes Percent Auto 21.5 % (20-40); MANUAL DIFF FLAG SCAN; Mean Corpuscular HGB Conc 32.8 g/dl (31.0-35.0); Mean Corpuscular Hemoglobin 29.5 pg (27.0-33.0); Mean Corpuscular Volume 89.9 fL (80.0-98.0); Mean Platelet Volume 12.1 fL (9.4-12.3); Monocytes Absolute Auto 0.4 X10*3/uL (0.1-1.2); Monocytes Percent Auto 8.3 % (2-11); Neutrophils Absolute Auto 3.4 x10*3/uL (2.0-8.3); Neutrophils Percent Auto 65.7 % (45-73); PLT CLUMP 1; Red Blood Count 4.75 X10*6/uL (4.20-5.50); Red Cell Distribution Width 13.5 % (11.0-16.0); SCAN SMEAR FLAG 1
[2023-10-03 08:20] LABS: Alanine Aminotransferase 20 U/L (0-31); Albumin Level 4.2 g/dL (3.5-5.0); Alkaline Phosphatase 39 U/L (39-117); Anion Gap 11 (12-20); Aspartate Amino Transferase 20 U/L (5-31); Bilirubin Total 0.7 mg/dL (0.0-1.0); Blood Urea Nitrogen 18 mg/dL (9-16); Calcium 9.3 mg/dL (8.4-10.2); Carbon Dioxide 27 mmol/L (22-29); Chloride 105 mmol/L (96-108); Cholesterol 195 mg/dL (<200); Estimated Glomerular Filt Rate > 60; Glucose Fasting 89 mg/dL (60-99); HDL Cholesterol 89 mg/dL (>40); LDL Cholesterol Calculated 96 mg/dL (<100); Potassium 4.1 mmol/L (3.3-5.1); Sodium 139 mmol/L (135-145); Total Protein 6.9 g/dL (6.5-8.0); Triglycerides 54 mg/dL (<150)
[2023-10-03 08:30] LABS: Platelet Count 114 X10*3/uL (160-400); White Blood Count 5.2 X10*3/uL (4.8-10.8)
[2023-10-03 08:31] LABS: SLIDE REVIEW VERIFIED
[2023-10-03 08:37] LABS: Thyroid Stimulating Hormone 2.57 uIU/mL (0.32-4.0)
== END 2023-10-03 06:15 | disposition home or self-care (01) ==
LOC: HO.LAB 06:14
PROVIDERS: PCP Internal Medicine; Visit Provider Internal Medicine
DX: Z00.00 Encounter for general adult medical examination without abnormal findings (principal); D69.6 Thrombocytopenia, unspecified; E03.9 Hypothyroidism, unspecified
CPT/HCPCS: 36415; 80053; 80061; 84443; 85025

== ENCOUNTER 2023-10-14 12:51 | Outpatient (AMB) | payer OTHER, SELFPAY ==
--- NOTE | 2023-10-14 12:52 | MHC.PC.OV ---
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 Accompanied by: Self / Same As Patient Allergies acetaminophen [From Percocet] Allergy (Severe, Verified 10/14/23 13:08) Vomiting codeine [CODEINE] Allergy (Severe, Verified 10/14/23 13:08) Vomiting erythromycin base [ERYTHROMYCIN BASE] Allergy (Severe, Verified 10/14/23 13:08) Vomiting oxycodone [From Percocet] Allergy (Severe, Verified 10/14/23 13:08) Vomiting Codeine Sulfate Allergy (Severe, Uncoded 10/14/23 13:08) Vomiting Medication List - Last Reconciled 10/14/23 by Palak Palacios MD clonazepam 0.5 mg PO BID 90 days levothyroxine (Synthroid) 50 mcg PO DAILY 90 days losartan 25 mg PO DAILY 90 days tacrolimus 0.1% 1 appl topical BID Tobacco use date assessed: 10/14/23 Dental Screening Dental Screen Date: 10/14/23 Did you have a dental visit in the last 12 months?: Yes Did you have a dental problem in the last 6 months where you did not have access to dental care?: No Was dental information given to patient?: Patient has dentist HPI HPI Comments History of Present Illness Details This is a 48-year-old female that comes for her physical exam. Last mammogram was June 2023. Last Pap smear was 2020 with HPV negative. Last colonoscopy was 2022. Denies any chest pain or shortness of breath. She has thrombocytopenia and has been present for years. Denies any active bleeding. Has family history of low platelets. [facility] Medical History (Updated 10/14/23 @ 14:03 by Palak Palacios MD) Sessile serrated polyp of colon Diverticulosis Left hand pain Physical exam Thrombocytopenia ROSARIO (generalized anxiety disorder) Hypothyroid Surgical History Hx of colonoscopy History of endometrial ablation History of tonsillectomy Previous section Family History (Updated 10/14/23 @ 13:22 by Palak Palacios MD) Mother Hypertension IBS (irritable bowel syndrome) Father Diabetes mellitus CAD (coronary artery disease) Pure hypercholesterolemia Hypertension CHF (congestive heart failure) Hypothyroidism Fred's syndrome Myelodysplasia (myelodysplastic syndrome) Maternal Grandmother Acute leukemia Maternal Grandfather Cancer Paternal Grandmother Hypertension Stroke Heart attack Paternal Grandfather Brain cancer Social History Housing: House Alcohol intake: current Alcohol intake frequency: a few times a month Alcohol type: beer and hard liquor Patient Tobacco Use Status: Former Tobacco user Tobacco use type: Cigarette e-Cigarette/Vaping Use: Never Used Second Hand Smoke Exposure: No service: No Current occupational status: employed Current occupational exposures/hazards: No Cognitive needs: No Hearing needs: No Vision needs: No Questionnaire PHQ-9 Over the last 2 weeks, how often have you been bothered by any of the following problems? 1. Little interest or pleasure in doing things: not at all 2. Feeling down, depressed, or hopeless: not at all 3. Trouble falling or staying asleep, or sleeping too much: not at all 4. Feeling tired or having little energy: not at all 5. Poor appetite or overeating: not at all 6. Feeling bad about yourself - or that you are a failure or have let yourself or your family down: not at all 7. Trouble concentrating on things, such as reading the newspaper or watching television: not at all 8. Moving or speaking so slowly that other people could have noticed. Or the opposite - being so fidgety or restless that you have been moving around a lot more than usual: not at all 9. Thoughts that you would be better off or of hurting yourself in some way: not at all Total score: 0 Depression Screening Interpretation: Negative Depression Screening Done: Yes 49589 - PHQ-9 Billing: Yes Source: Developed by Drs. Norm Rivas, Lynne Frey, Terrance Mason and colleagues, with an educational raleigh from [employer]. Thrive Questionnaire Date Thrive assessed: 10/14/23 I am a: Patient What is your living situation today?: I have a steady place to live Within the past 12 months, did the food you bought not last and you didn't have the money to get more?: Never true Within the past 12 months, did you worry whether your food would run out before you got money to buy more?: Never true Do you have trouble paying for medicines?: No Do you have trouble getting transportation to medical appointments?: No Do you have trouble paying your heating and electricity bill?: No Do you have trouble taking care of your child, family member or friend?: No Do you have trouble with day-to-day activities such as bathing, preparing meals, shopping, managing finances, etc.?: No Are you currently unemployed and looking for a job?: No Are you interested in more education?: No Please select the resources that you would like help with: None Currently or been in a relationship where the following occur: no concerns reported THRIVE Score: 0 AUDIT C Alcohol Use Questionnaire (AUDIT-C) 1. How often do you have a drink containing alcohol?: Monthly or less 2. How many drinks containing alcohol do you have on a typical day when you are drinking?: 1 or 2 3. How often do you have six or more drinks on one occasion?: Never Total Score: 1 ROSARIO-7 AMB Questionnaire ROSARIO-7 Date ROSARIO - 7 assessed: 10/14/23 Feeling nervous, anxious, or on edge: 0 = Not at all Not being able to stop or control worryin = Not at all Worrying too much about different things: 0 = Not at all Trouble relaxin = Not at all Being so restless that it is hard to sit still: 0 = Not at all Becoming easily annoyed or irritable: 0 = Not at all Feeling afraid as if something awful might happen: 0 = Not at all Total ROSARIO-7 score (0-4 normal; 5-9 mild; 10-14 moderate; 15-21 severe): 0 Source: Developed by Drs. Norm Rivas, Lynne Frey, Terrance Mason and colleagues, with an educational raleigh from [employer]. ROSARIO-7 Assessment Billing ROSARIO-7 Assessment Tool: ROSARIO-7 Assessment 70496 Review of Systems Const All systems reviewed & are unremarkable except as noted in HPI and below Eyes Reports no additional complaints, Denies change in vision and Denies other visual disturbances Card Denies chest pain at rest, Denies chest pain with activity, Denies edema, Denies irregular heart rhythm, Denies claudication, Denies dyspnea, Denies dyspnea on exertion, Denies orthopnea, Denies paroxysmal nocturnal dyspnea and Denies slow heart rate Resp Denies cough, Denies dyspnea and Denies dyspnea on exertion GI Denies abdominal pain, Denies change in bowel habits, Denies excessive flatus, Denies nausea and Denies vomiting Denies urinary incontinence, Denies urinary hesitancy and Denies urinary urgency Musc Denies abnormal gait, Denies atrophy, Denies deformity and Denies limited range of motion Skin/Breast Denies bleeding lesions, Denies changing lesions and Denies rash Neuro Denies abnormal gait, Denies behavioral changes, Denies confusion and Denies lack of coordination Psych Denies behavioral changes and Denies confusion Physical exam (Primary Care) Vital Signs: Last Vital Signs BP 122/78 10/14/23 12:53 BMI result Body Mass Index 23.1 Tobacco/Smoking Status: Tobacco use Status Tobacco use date assessed 10/14/23 10/14/23 12:58 Patient Tobacco Use Status Former Tobacco user 10/14/23 12:58 Tobacco use type Cigarette 10/14/23 12:58 e-Cigarette/Vaping Use Never Used 10/14/23 12:58 PHQ-9: PHQ-9 Score PHQ-9: Total score 0 10/14/23 13:17 Depression Screening Interpretation: Negative Thrive Assessment: Date of Thrive Assessment Date Thrive assessed 10/14/23 10/14/23 12:58 Currently or been in a relationship where the following occur: no concerns reported Const General: No confusion Orientation/consciousness: patient oriented x3 and No confusion HENTN Head: Yes normal to inspection, Yes normocephalic and Yes atraumatic Ears: external ears normal Eyes General: appearance normal, both eyes and all related structures Eyelids: Yes eyelids normal Conjunctivae: conjunctivae normal Neck Neck: Yes normal visual inspection and Yes supple Resp Effort & Inspection: normal respiratory effort Auscultation: clear to auscultation bilaterally Cardio Jugular venous distension: no JVD Rate: regular rate Rhythm: regular rhythm Heart sounds: S1 normal heart sound present and S2 normal heart sound present GI Inspection: Yes normal to inspection Palpation (GI): Soft to palpation and nontender Auscultation: normal bowel sounds Skin General skin exam: no rashes or lesions noted Neuro General: patient oriented x3, no focal motor deficits and No confusion Extrem General: Yes full ROM Psych Appearance: grossly normal Assessment and Plan Assessment & Plan (1) Physical exam: Code(s): Z00.00 - Encounter for general adult medical examination without abnormal findings Plan: Repeat in a year. (2) Thrombocytopenia: Code(s): D69.6 - Thrombocytopenia, unspecified Plan: Referred to Hematology-Oncology. Orders: Orders Thyroid Stimulating Hormone 6 Months E03.9 - Hypothyroidism, unspecified Referrals Hematology & Oncology Referral D69.6 - Thrombocytopenia, unspecified Coding Level of Care Code Est Pt Prev Care 40-64y(50099) Diagnoses Physical exam Z00.00 Thrombocytopenia D69.6 Additional Codes ROSARIO-7 Assessment Billing - ROSARIO-7 Assessment Tool: ROSARIO-7 Assessment 44779 ([id number]) Time Spent (min) 31
[2023-10-14 12:53] VITALS: BP 122/78; BMI 23.1
== END 2023-10-14 13:22 | disposition home or self-care (01) ==
PROVIDERS: Visit Provider Internal Medicine
DX: Z00.00 Encounter for general adult medical examination without abnormal findings (principal); D69.6 Thrombocytopenia, unspecified
CPT/HCPCS: 99396

== ENCOUNTER → 2023-11-11 14:45 | Outpatient (BNV) | payer OTHER, SELFPAY | PROVIDERS: PCP Internal Medicine; Referring Provider Internal Medicine; Visit Provider Internal Medicine | DX: D69.6 Thrombocytopenia, unspecified (principal) | CPT/HCPCS: 99204 ==

== ENCOUNTER 2024-07-09 13:53 | Outpatient (REF) | payer OTHER, SELFPAY ==
--- NOTE | ~2024-07-09 | MM_ITS ---
EXAMINATION: MM SCREENING DIGITAL BREAST TOMOSYNTHESIS, BILATERAL CLINICAL INFORMATION: Screening. Asymptomatic. COMPARISON: Mammography: Comparison is made with available priors TECHNIQUE: Digital breast mammography with tomosynthesis is performed in both the craniocaudal and mediolateral oblique views along with computer-aided detection (CAD). FINDINGS: The breasts are heterogeneously dense, which may obscure small masses (ACR BI-RADS breast composition Category c). There are no significant masses, abnormal calcifications, or other abnormalities. MM/MM tomosynthesis screening BI IMPRESSION: No mammographic evidence of malignancy. ASSESSMENT: BI-RADS BI-RADS 1 - Negative RECOMMENDATION: Routine annual mammography screening. 1 year F/U This examination should not preclude the clinical evaluation of a suspicious palpable abnormality. This patient's information was entered into a reminder system with a target due date for their next mammogram. Electronically signed by: Ramona Butler DO 07/17/2024 12:47 PM [facility]
== END 2024-07-09 13:54 | disposition home or self-care (01) ==
LOC: HO.MAMMO 13:53
PROVIDERS: PCP Internal Medicine; Visit Provider Internal Medicine
DX: Z12.31 Encounter for screening mammogram for malignant neoplasm of breast (principal)
CPT/HCPCS: 77063; 77067

== ENCOUNTER → 2024-07-09 14:00 | Outpatient (BNV) | payer OTHER, SELFPAY | PROVIDERS: PCP Internal Medicine; Visit Provider Internal Medicine | DX: Z12.31 Encounter for screening mammogram for malignant neoplasm of breast (principal) | CPT/HCPCS: 77063; 77067 ==

== ENCOUNTER 2024-10-12 16:36 | Outpatient (REF) | payer OTHER, SELFPAY ==
[2024-10-12 17:46] LABS: Thyroid Stimulating Hormone 0.94 uIU/mL (0.32-4.0)
== END 2024-10-12 16:37 | disposition home or self-care (01) ==
LOC: HO.LAB 16:36
PROVIDERS: PCP Internal Medicine; Visit Provider Internal Medicine
DX: E03.9 Hypothyroidism, unspecified (principal)
CPT/HCPCS: 36415; 84443

== ENCOUNTER 2024-10-19 13:00 | Outpatient (AMB) | payer OTHER, SELFPAY ==
--- NOTE | 2024-10-19 13:03 | A.OFFPC_ITS ---
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 Accompanied by: Self / Same As Patient Allergies acetaminophen [From Percocet] Allergy (Severe, Verified 10/19/24 13:18) Vomiting codeine [CODEINE] Allergy (Severe, Verified 10/19/24 13:18) Vomiting erythromycin base [ERYTHROMYCIN BASE] Allergy (Severe, Verified 10/19/24 13:18) Vomiting oxycodone [From Percocet] Allergy (Severe, Verified 10/19/24 13:18) Vomiting Codeine Sulfate Allergy (Severe, Uncoded 10/19/24 13:18) Vomiting Medication List - Last Reconciled 10/19/24 by Palak Palacios MD clonazepam 0.5 mg PO BID 90 days cyanocobalamin (vitamin B-12) 100 mcg PO DAILY levothyroxine (Synthroid) 50 mcg PO DAILY 90 days losartan 25 mg PO DAILY 90 days tacrolimus 0.1% 1 appl topical BID Tobacco use date assessed: 10/19/24 Dental Screening Dental Screen Date: 10/19/24 Did you have a dental visit in the last 12 months?: Yes Did you have a dental problem in the last 6 months where you did not have access to dental care?: No Was dental information given to patient?: Patient has dentist HPI HPI Comments History of Present Illness Details This is a 49-year-old female with thrombocytopenia that comes for her physical exam. Thrombocytopenia is follow by Hematology-Oncology and has been stable. Colonoscopy done last year. Mammogram done last year. Pap smear done 2020 and this is follow by OBGYN. No acute complaints. [facility] Medical History Sessile serrated polyp of colon Diverticulosis Left hand pain Physical exam Thrombocytopenia ROSARIO (generalized anxiety disorder) Hypothyroid Surgical History Hx of colonoscopy History of endometrial ablation History of tonsillectomy Previous section Family History Mother Hypertension IBS (irritable bowel syndrome) Father Diabetes mellitus CAD (coronary artery disease) Pure hypercholesterolemia Hypertension CHF (congestive heart failure) Hypothyroidism Fred's syndrome Myelodysplasia (myelodysplastic syndrome) Maternal Grandmother Acute leukemia Maternal Grandfather Cancer Paternal Grandmother Hypertension Stroke Heart attack Paternal Grandfather Brain cancer Social History Housing: House Alcohol intake: current Alcohol intake frequency: a few times a month Alcohol type: beer and hard liquor Patient Tobacco Use Status: Former Tobacco user Tobacco use type: Cigarette e-Cigarette/Vaping Use: Never Used Second Hand Smoke Exposure: No service: No Current occupational status: employed Current occupational exposures/hazards: No Cognitive needs: No Hearing needs: No Vision needs: No Questionnaire PHQ-9 Over the last 2 weeks, how often have you been bothered by any of the following problems? 1. Little interest or pleasure in doing things: not at all 2. Feeling down, depressed, or hopeless: not at all 3. Trouble falling or staying asleep, or sleeping too much: several days 4. Feeling tired or having little energy: not at all 5. Poor appetite or overeating: not at all 6. Feeling bad about yourself - or that you are a failure or have let yourself or your family down: not at all 7. Trouble concentrating on things, such as reading the newspaper or watching television: not at all 8. Moving or speaking so slowly that other people could have noticed. Or the opposite - being so fidgety or restless that you have been moving around a lot more than usual: not at all 9. Thoughts that you would be better off or of hurting yourself in some way: not at all Total score: 1 Depression Screening Interpretation: Negative Depression Screening Done: Yes 03485 - PHQ-9 Billing: Yes Source: Developed by Drs. Norm Rivas, Lynne Frey, Terrance Mason and colleagues, with an educational raleigh from [employer]. Thrive Questionnaire Date Thrive assessed: 10/19/24 I am a: Patient What is your living situation today?: I have a steady place to live Within the past 12 months, did the food you bought not last and you didn't have the money to get more?: Never true Within the past 12 months, did you worry whether your food would run out before you got money to buy more?: Never true Do you have trouble paying for medicines?: No Do you have trouble getting transportation to medical appointments?: No Do you have trouble paying your heating and electricity bill?: No Do you have trouble taking care of your child, family member or friend?: No Do you have trouble with day-to-day activities such as bathing, preparing meals, shopping, managing finances, etc.?: No Are you currently unemployed and looking for a job?: No Are you interested in more education?: No Please select the resources that you would like help with: None Currently or been in a relationship where the following occur: No concerns reported THRIVE Score: 0 AUDIT C Alcohol Use Questionnaire (AUDIT-C) 1. How often do you have a drink containing alcohol?: 2-4 times a month 2. How many drinks containing alcohol do you have on a typical day when you are drinking?: 1 or 2 3. How often do you have six or more drinks on one occasion?: Never Total Score: 2 Score Reviewed/Action Taken: No ROSARIO-7 AMB Questionnaire ROSARIO-7 Date ROSARIO - 7 assessed: 10/19/24 Feeling nervous, anxious, or on edge: 1 = Several days Not being able to stop or control worryin = Not at all Worrying too much about different things: 0 = Not at all Trouble relaxin = Not at all Being so restless that it is hard to sit still: 0 = Not at all Becoming easily annoyed or irritable: 0 = Not at all Feeling afraid as if something awful might happen: 0 = Not at all Total ROSARIO-7 score (0-4 normal; 5-9 mild; 10-14 moderate; 15-21 severe): 1 Source: Developed by Drs. Norm Rivas, Lynne Frey, Terrance Mason and colleagues, with an educational raleigh from [employer]. ROSARIO-7 Assessment Billing ROSARIO-7 Assessment Tool: ROSARIO-7 Assessment 02166 Review of Systems Const All systems reviewed & are unremarkable except as noted in HPI and below Card Denies chest pain at rest, Denies chest pain with activity, Denies edema, Denies irregular heart rhythm, Denies claudication, Denies dyspnea, Denies dyspnea on exertion, Denies orthopnea, Denies paroxysmal nocturnal dyspnea and Denies slow heart rate Resp Denies cough, Denies dyspnea and Denies dyspnea on exertion GI Denies abdominal pain, Denies change in bowel habits, Denies excessive flatus, Denies nausea and Denies vomiting Denies urinary incontinence, Denies urinary hesitancy and Denies urinary urgency Musc Denies abnormal gait, Denies atrophy, Denies deformity and Denies limited range of motion Skin/Breast Denies bleeding lesions, Denies changing lesions and Denies rash Neuro Denies abnormal gait and Denies lack of coordination Physical exam (Primary Care) Vital Signs: Last Vital Signs BP 122/80 10/19/24 13:05 BMI result Body Mass Index 22.8 Tobacco/Smoking Status: Tobacco use Status Tobacco use date assessed 10/19/24 10/19/24 13:15 Patient Tobacco Use Status Former Tobacco user 10/19/24 13:15 Tobacco use type Cigarette 10/19/24 13:15 e-Cigarette/Vaping Use Never Used 10/19/24 13:15 PHQ-9: PHQ-9 Score PHQ-9: Total score 1 10/19/24 13:35 Depression Screening Interpretation: Negative Thrive Assessment: Date of Thrive Assessment Date Thrive assessed 10/19/24 10/19/24 13:15 Currently or been in a relationship where the following occur: No concerns reported [facility] Head: Yes normal to inspection, Yes normocephalic and Yes atraumatic Ears: external ears normal Eyes General: appearance normal, both eyes and all related structures Eyelids: Yes eyelids normal Conjunctivae: conjunctivae normal Neck Neck: Yes normal visual inspection and Yes supple Resp Effort & Inspection: normal respiratory effort Auscultation: clear to auscultation bilaterally Cardio Jugular venous distension: no JVD Rate: regular rate Rhythm: regular rhythm Heart sounds: S1 normal heart sound present and S2 normal heart sound present GI Inspection: Yes normal to inspection Palpation (GI): Soft to palpation and nontender Auscultation: normal bowel sounds Skin General skin exam: no rashes or lesions noted Neuro General: no focal motor deficits Extrem General: Yes full ROM Psych Appearance: grossly normal Immunizations Boostrix Tdap 2.5 Lf unit-8 mcg-5 Lf/0.5 mL intramuscular syringe Performing Provider: Palak Palacios MD [facility] Administered by: MULUGETA Simmons on 10/19/24 13:35 Dose Route Admin Location Dispensed Lot Number Expiration Date [employer] Member 0.5 mL IM Left Deltoid 0.5 mL [id number] 12/12/26 76503-954-74 [employer] VIS Given Date VIS Provided VIS Publication Date 10/19/24 Single Vaccine 21 Eligibility Eligibility Date Funding Source Not [facility] Eligible 10/19/24 Private Coding Level of Care Code Est Pt Prev Care 40-64y(35569) Diagnoses Physical exam Z00.00 Thrombocytopenia D69.6 Additional Codes ROSARIO-7 Assessment Billing - ROSARIO-7 Assessment Tool: ROSARIO-7 Assessment 97294 ([id number]) PHQ-9 - 03086 - PHQ-9 Billing: Yes ([id number]) Time Spent (min) 31 Assessment & Plan Assessment & Plan (1) Physical exam: Code(s): Z00.00 - Encounter for general adult medical examination without abnormal findings Category: Medical Plan: Repeat in a year. (2) Thrombocytopenia: Code(s): D69.6 - Thrombocytopenia, unspecified Category: Medical Plan: Follow with Hematology-Oncology. Orders: Orders Lipid Panel 6 Months E78.5 - Hyperlipidemia, unspecified Thyroid Stimulating Hormone 6 Months E03.9 - Hypothyroidism, unspecified Comprehensive [place]. Panel Fast 6 Months Z00.00 - Encounter for general adult medical examination without abnormal findings TDaP Immunization Today Z23 - Encounter for immunization Medications: New scopolamine base 1 patch transdermal Q3D 10 days PRN 4 ea 0RF nausea and vomiting scopolamine base 1 patch transdermal Q3D PRN 4 ea 0RF nausea and vomiting 10 days
[2024-10-19 13:05] VITALS: BP 122/80; BMI 22.8
== END 2024-10-19 13:36 | disposition home or self-care (01) ==
PROVIDERS: PCP Internal Medicine; Visit Provider Internal Medicine
DX: Z00.00 Encounter for general adult medical examination without abnormal findings (principal); D69.6 Thrombocytopenia, unspecified; Z23 Encounter for immunization

== ENCOUNTER → 2024-10-19 13:00 | Outpatient (BNVA) | payer OTHER, SELFPAY | PROVIDERS: PCP Internal Medicine; Visit Provider Internal Medicine | DX: Z00.00 Encounter for general adult medical examination without abnormal findings (principal); Z23 Encounter for immunization; D69.6 Thrombocytopenia, unspecified; E03.9 Hypothyroidism, unspecified | CPT/HCPCS: 90471; 90715; 96127 ==

== ENCOUNTER 2025-05-21 06:48 | Outpatient (REF) | payer OTHER, SELFPAY ==
[2025-05-21 08:32] LABS: Alanine Aminotransferase 20 U/L (0-31); Albumin Level 4.4 g/dL (3.5-5.0); Alkaline Phosphatase 62 U/L (39-117); Anion Gap 13 (12-20); Aspartate Amino Transferase 27 U/L (5-31); Blood Urea Nitrogen 17 mg/dL (9-16); Calcium 9.4 mg/dL (8.4-10.2); Carbon Dioxide 25 mmol/L (22-29); Chloride 108 mmol/L (96-108); Cholesterol 164 mg/dL (<200); Estimated Glomerular Filt Rate > 60; HDL Cholesterol 71 mg/dL (>40); Potassium 4.1 mmol/L (3.3-5.1); Sodium 142 mmol/L (135-145); Total Protein 6.7 g/dL (6.5-8.0); Triglycerides 69 mg/dL (<150)
[2025-05-21 09:11] LABS: Thyroid Stimulating Hormone 1.91 uIU/mL (0.32-4.0)
[2025-05-21 11:45] LABS: Appearance Urine Clear; Glucose Urine UA Negative (Negative); PH 6.5 (5.0-9.0); Specific Gravity - Urine 1.010 (1.005-1.025); UMIC TRIGGER UACC YES
[2025-05-21 11:52] LABS: UACC Culture Trigger YES
== END 2025-05-21 06:49 | disposition home or self-care (01) ==
LOC: HO.LAB 06:48
PROVIDERS: PCP Internal Medicine; Visit Provider Internal Medicine
DX: Z00.00 Encounter for general adult medical examination without abnormal findings (principal); E78.5 Hyperlipidemia, unspecified; E03.9 Hypothyroidism, unspecified; R39.9 Unspecified symptoms and signs involving the genitourinary system
CPT/HCPCS: 36415; 80053; 80061; 81001; 84443; 87086; 87088; 87186

== ENCOUNTER 2025-07-16 09:45 | Outpatient (REF) | payer OTHER, SELFPAY ==
--- NOTE | ~2025-07-16 | MM_ITS ---
EXAMINATION: MM SCREENING DIGITAL BREAST TOMOSYNTHESIS, BILATERAL CLINICAL INFORMATION: Screening. Asymptomatic. COMPARISON: Mammography: Comparison is made with available priors TECHNIQUE: Digital breast mammography with tomosynthesis is performed in both the craniocaudal and mediolateral oblique views along with computer-aided detection (CAD). FINDINGS: The breasts are heterogeneously dense, which may obscure small masses. There are no significant masses, abnormal calcifications, or other abnormalities. MM/MM tomosynthesis screening BI IMPRESSION: No mammographic evidence of malignancy. ASSESSMENT: BI-RADS Category 1: Negative RECOMMENDATION: Routine annual mammography screening. 1 year F/U This examination should not preclude the clinical evaluation of a suspicious palpable abnormality. This patient's information was entered into a reminder system with a target due date for their next mammogram. Electronically signed by: Ramona Butler DO 07/19/2025 06:06 PM ARY
== END 2025-07-16 09:46 | disposition home or self-care (01) ==
LOC: HO.MAMMO 09:45
PROVIDERS: PCP Internal Medicine; Visit Provider Internal Medicine
DX: Z12.31 Encounter for screening mammogram for malignant neoplasm of breast (principal)
CPT/HCPCS: 77063; 77067

== ENCOUNTER → 2025-07-16 10:00 | Outpatient (BNV) | payer OTHER, SELFPAY | PROVIDERS: PCP Internal Medicine; Visit Provider Internal Medicine | DX: Z12.31 Encounter for screening mammogram for malignant neoplasm of breast (principal) | CPT/HCPCS: 77063; 77067 ==